=== PATIENT | female | born 1985 | race Caucasian/White ===

== ENCOUNTER 2021-03-22 10:40 | Emergency (ER) | payer BC ==
[2021-03-22] MEDS ORDERED: Meclizine HCl 25 MG TAB ONE (13:32)
[2021-03-22] MEDS ORDERED: Ondansetron ODT 4 MG TAB ONE (13:32)
== END 2021-03-22 14:05 | disposition home or self-care (01) ==
LOC: CSHERS 10:40
DX: R42 Dizziness and giddiness (principal); H61.23 Impacted cerumen, bilateral; Z79.899 Other long term (current) drug therapy
CPT/HCPCS: 69209; 70450; Q0162